=== PATIENT | female | born 1960 | race Caucasian/White ===

== ENCOUNTER 2023-05-09 11:19 | Emergency (ER) | payer OTHER ==
[~2023-05-09] VITALS: Ht 160 cm; Wt 86.2 kg
[2023-05-09 12:24] VITALS: BP 172/79
[2023-05-09] MEDS ORDERED: NAPROXEN500 MG PO (13:37)
[2023-05-09] MEDS ORDERED: METHOCARBAMOL500 MG PO (13:37)
[2023-05-09 13:39] VITALS: BP 165/80
[2023-05-09] MEDS ORDERED: DICLOFENAC SODIUM2 % TD (13:43)
[2023-05-09 13:45] VITALS: BP 165/80
== END 2023-05-09 13:45 | disposition home or self-care (01) | DRG 563 ==
LOC: ED 11:19
DX: S83.92XA Sprain of unspecified site of left knee, initial encounter (principal); X50.0XXA Overexertion from strenuous movement or load, initial encounter; Y93.54 Activity, bowling